=== PATIENT | male | born 1980 | race Caucasian/White ===

== ENCOUNTER → 2017-02-15 | Outpatient (CLI) | payer BC, OTHER ==
[2016-06-16 10:46] VITALS: BP 122/77
[~2017-02-15] MED LIST: TRAM-29 PO
--- NOTE | 2017-02-15 15:40 | KCIC ---
PROCEDURE Testicular ultrasound dated 02/15/2017. HISTORY Right-sided testicular pain. TECHNIQUE Routine sonographic imaging performed. COMPARISON None. FINDINGS Right testicle measures 4.5 x 2.3 x 3.2 centimeter. Left testicle measures 4.3 x 2.3 x 4.2 centimeter. No focal testicular mass. Normal color Doppler flow to both testicles. At addendum I are unremarkable. No significant hydrocele or varicocele. No scrotal wall thickening. IMPRESSION Normal testicular ultrasound. Electronically signed by: Chace Mcallister (Feb 15, 2017 15:38:39)
== END | disposition home or self-care (01) ==
LOC: KCIC US 14:15
PROVIDERS: ATTEND Family Medicine
DX: N50.811 Right testicular pain (principal)
CPT/HCPCS: 76870

== ENCOUNTER 2018-05-21 18:16 | Emergency (ER) | payer SELFPAY, BC ==
[2018-05-21] MEDS: ASPIRIN CHEWABLE 81 MG TABLET. PO (18:50)
[2018-05-21] MEDS ORDERED: ASPIRIN 325 MG TABLET PO (19:15)
[2018-05-21 19:16] LABS: ADD MAN DIFF? NO
[2018-05-21 19:18] LABS: BASO # 0.1 x10^3/uL (0.0-0.2); BASO % 1 % (0-3); EOS # 0.2 x10^3/uL (0.0-0.7); EOS % 3 % (0-3); HEMATOCRIT 41.5 % (39.0-53.0); HEMOGLOBIN 14.3 g/dL (13.0-17.5); LYMPH # 2.2 x10^3/uL (1.0-4.8); LYMPH % 27 % (24-48); MEAN CORPUSCULAR HEMOGLOBIN 30 pg (25-35); MEAN CORPUSCULAR HGB CONC 34 g/dL (31-37); MEAN CORPUSCULAR VOLUME 88 fL (79-100); MONO # 0.5 x10^3/uL (0.0-1.1); MONO % 7 % (0-9); NEUT # 5.1 x10^3uL (1.8-7.7); NEUT % 63 % (31-73); PLATELET COUNT 259 x10^3/uL (140-400); RED BLOOD COUNT 4.72 x10^6/uL (4.30-5.70); RED CELL DISTRIBUTION WIDTH 12.9 % (11.5-14.5); WHITE BLOOD COUNT 8.2 x10^3/uL (4.0-11.0)
[2018-05-21 19:31] LABS: D-DIMER 0.36 ug/mlFEU (0.00-0.50)
[2018-05-21 19:32] LABS: ANION GAP 8 (6-14); BLOOD UREA NITROGEN 17 mg/dL (8-26); BUN/CREATININE RATIO 14 (6-20); CARBON DIOXIDE 28 mmol/L (21-32); CHLORIDE 103 mmol/L (98-107); CREATININE 1.2 mg/dL (0.7-1.3); GFR 68.5; GLUCOSE 84 mg/dL (70-99); POTASSIUM 3.8 mmol/L (3.5-5.1); SODIUM 139 mmol/L (136-145)
[2018-05-21 19:38] LABS: ALBUMIN 4.1 g/dL (3.4-5.0); ALBUMIN/GLOBULIN RATIO 1.3 (1.0-1.7); ALK PHOS 66 U/L (46-116); ALT (SGPT) 36 U/L (16-63); AST (SGOT) 27 U/L (15-37); TOTAL BILIRUBIN 0.4 mg/dL (0.2-1.0); TOTAL PROTEIN 7.2 g/dL (6.4-8.2)
[2018-05-21 19:40] LABS: TROPONINI < 0.017 ng/mL (0.000-0.055)
[2018-05-21] MEDS: KETOROLAC 30 MG/ML INJ. IV (19:44)
[2018-05-21] MEDS: IBUPROFEN 800 MG TABLET. PO (22:36)
== END 2018-05-21 22:43 | disposition home or self-care (01) ==
LOC: ER 22:43
DX: I31.9 Disease of pericardium, unspecified (principal); R42 Dizziness and giddiness; M25.512 Pain in left shoulder
CPT/HCPCS: 36415; 71046; 80053; 84484; 85025; 85379; 93005; 96374; 99285-25; J1885